=== PATIENT | female | born 1960 | race Caucasian/White ===

== ENCOUNTER → 2020-03-07 | Day surgery (SDC) | payer MEDICARE, OTHER ==
--- NOTE | 2020-02-27 12:19 | Diagnostic Imaging Report ---
Exam: CHEST 2 VIEWS Date: 02/27/2020 12:15 PM INDICATION: ^[id number] ^[id number] ^PRE-OP Comparison: None FINDINGS: Lines/Tubes:None Lungs:The lungs are well inflated. No focal consolidation or pulmonary edema. Pleura:No pleural effusion. No pneumothorax. Heart/Mediastinum:The cardiomediastinal silhouette is normal in size and contour. Bones/Soft Tissues: No acute osseous abnormality. Mild multilevel degenerative changes of the visualized spine are noted. Upper abdomen: Surgical clips are identified in the right upper quadrant, likely related to cholecystectomy. IMPRESSION: Negative for acute intrathoracic process. Signed by: Tulio Bailey MD on 02/27/2020 12:16 PM
[~2020-03-07] VITALS: Ht 149.9 cm; Wt 66.2 kg
[~2020-03-07] MED LIST: BREO ELLIPTA 21 EACH; BUPIVACAINE HCL 0.5% INJ 30 ML VIAL INJ ONE; CEFAZOLIN SOD 1 GM/NS 50ML 50 ML IV ONE; CLONAZEPAM0.5 MG PO; CRESTOR10 MG; CYCLOBENZAPRINE10 MG PO; DEXAMETHASONE SOD PHOS INJ 4 MG/ML VIAL ONE; DICYCLOMINE HCL10 MG PO; FENTANYL CITRATE/PF 100MCG/2 ML INJ ONE; GABAPENTIN600 MG PO; HYDROCODONE/APAP 10MG-325MG TAB ONE; KETOROLAC TROMETHAMINE 30 MG/ML VIAL ONE; LISINOPRIL10 MG PO; MIDAZOLAM HCL 2 MG/2 ML VIAL ONE; NEXIUM40 MG PO; NIFEDIPINE ER30 M1 PO; NIFEDIPINE10 MG PO; NORCO 10-325 T1 EACH PO; ONDANSETRON HCL INJ 2MG/ML 2ML 2 MG/ML VIAL ONE; PROPOFOL IV EMULSION 10 MG/ML 20 ML VIAL ONE; ROPINIROLE HCL1 MG PO; SERTRALINE HCL100 MG PO; SEVOFLURANE INHAL SOLN 250 ML PEN BTL ONE; TEMAZEPAM15 MG; TIZANIDINE HCL4 MG PO
[2020-03-07 09:15] VITALS: BP 120/70
--- NOTE | 2020-03-07 09:31 | Operative Report ---
DATE OF PROCEDURE: SURGEON: Anjel Nuñez DPM PREOPERATIVE DIAGNOSES: 1. Left metatarsal cuneiform exostectomy. 2. Left medial dorsal cutaneous nerve entrapment. PLANNED PROCEDURES: 1. Left metatarsal cuneiform exostectomy. 2. Left external neurolysis, medial dorsal cutaneous nerve. SURGEON: Chris Mahmood DPM ([facility]) [facility] ARTIST: Anjel Nuñez DPM ANESTHESIA: General with a postoperative block consisting of 10 mL of 0.5% Marcaine plain mixed with 1 mL of dexamethasone phosphate. HEMOSTASIS: Pneumatic thigh tourniquet set at 350 mmHg for a total time approximately 25 minutes. MATERIALS: 3-0 Vicryl, 4-0 nylon. ESTIMATED BLOOD LOSS: Less than 10 mL. PATHOLOGY: None. PROCEDURE NOTE: The patient was seen in the preoperative waiting room with the correct procedure and site was identified. The patient was brought to the operating room and placed on the operating table in supine position. General anesthesia was initiated. At this time, a well-padded pneumatic tourniquet was placed about the patient's left thigh. The left foot, ankle, and leg were scrubbed, prepped, and draped in the usual aseptic manner. The left foot, ankle, and leg were exsanguinated with an Esmarch bandage and the pneumatic thigh tourniquet was inflated to 350 mmHg for a total time of approximately 25 minutes. Attention was directed to the dorsal aspect of the patient's 2nd metatarsal cuneiform joint where a 4 cm linear incision was made. The incision was carried through subcutaneous tissue them from deep or underlying structures. All vital and neurovascular structures were identified and retracted medially and laterally and all bleeders were cauterized or ligated as deemed necessary. It should be noted that upon dissection underneath the muscle belly of the extensor digitorum longus, a significantly inflamed tortuous and inflamed medial dorsal cutaneous nerve was noted directly over the 2nd metatarsal cuneiform exostosis. This was freed of all adhesions proximally and distally. At this point, the medial dorsal cutaneous nerve was retracted medially with vessel loops and a capsulotomy was performed at the 2nd metatarsal cuneiform joint. Utilizing an osteotome and mallet, the exostosis was resected, passed off to the back table and smoothed utilizing a hand bur. The wound was then copiously irrigated with sterile saline. Deep tissue was left open to allow for no further adhesions. The subcutaneous tissues were reapproximated with 3-0 Vicryl, subcutaneous tissue with 3-0 Vicryl and the skin was closed using a running interlocking stitch with 3-0 nylon. The incision site was dressed with Adaptic, 4x4s, Kerlix, Justice wrap, and a postop shoe. The patient tolerated the procedure and anesthesia well. The patient was transferred to postoperative recovery with vital signs stable and vascular status intact. The patient was monitored there for a short period of time before being sent home with the following written and oral instructions. 1. Keep the dressing clean, dry, intact. 2. The patient is to remain partial weightbearing in a postop shoe to avoid excessive ambulation until being seen in the office. 3. The patient was given office number, instructed to contact us if any problems arise. KAREN Aguilar/PIETER /[id number]
== END | disposition home or self-care (01) ==
LOC: OR 05:22
PROVIDERS: ATTEND Podiatrist Foot & Ankle Surgery
DX: M77.52 Other enthesopathy of left foot and ankle (principal); G58.8 Other specified mononeuropathies; J44.9 Chronic obstructive pulmonary disease, unspecified; I10 Essential (primary) hypertension; G89.29 Other chronic pain; F41.9 Anxiety disorder, unspecified; F17.210 Nicotine dependence, cigarettes, uncomplicated; Z01.810 Encounter for preprocedural cardiovascular examination; Z01.812 Encounter for preprocedural laboratory examination; Z01.818 Encounter for other preprocedural examination; Z11.59 Encounter for screening for other viral diseases
CPT/HCPCS: 28104; 64704; 71046; 93005; J0690; J1100; J1885; J2250; J2405; J2704; J3010; U0002 ×2